=== PATIENT | male | born 1990 | race American Indian/Alaskan Native ===

== ENCOUNTER 2018-05-13 03:09 | Emergency (ER) | payer BC ==
[2018-05-13] MEDS ORDERED: Naproxen 550 mg Tab PO ONE (05:15)
[2018-05-13 06:46] VITALS: BP 136/71; PULSE 90; RESP 19; TEMP 98.7; O2SAT 98
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
[2018-05-14 14:30] VITALS: BMI 22.8
--- NOTE | 2018-05-14 16:15 | CARD ---
APPROVED REPORT Date of service: 05/13/2018 EKG Measurement Heart [id number] <Conclusion> Normal sinus rhythm Normal ECG
== END 2018-05-13 06:18 | disposition home or self-care (01) ==
LOC: ED 03:09
DX: S29.011A Strain of muscle and tendon of front wall of thorax, initial encounter (principal); X58.XXXA Exposure to other specified factors, initial encounter